=== PATIENT | male | born 1960 | race African-American/Black ===

== ENCOUNTER 2021-04-10 08:34 | Emergency (ER) | payer OTHER, SELFPAY ==
--- NOTE | ~2021-04-10 | XR_ITS ---
EXAMINATION: XR chest 2V DATE: 04/10/2021 09:13 INDICATION: Cough and congestion. Coarse upper lung snow. TECHNIQUE: Frontal and lateral views of the chest were obtained. COMPARISON: None. FINDINGS: The chest demonstrates clear lungs without pneumonia, pleural effusion, or pneumothorax. Th e heart size is normal. There is mild chronic anterior wedging of multiple midthoracic vertebral bodi es. IMPRESSION: 1. No acute cardiopulmonary disease. Reviewed, dictated and finalized at location A. [facility] [employer]
[2021-04-10 08:43] VITALS: BP 125/83; PULSE 70; RESP 16; TEMP 37.1; O2SAT 100
--- NOTE | 2021-04-10 08:47 | ED.URI ---
HPI - URI/Sore Throat General Chief Complaint: Upper Respiratory Infection Stated Complaint: Chest Congestion Time Seen by Provider: 04/10/21 08:47 Source: patient and RN notes reviewed History of Present Illness HPI Narrative: Patient is a 60-year-old male who presents the urgent care with complaints of chest congestion, intermittent shortness of breath and productive cough. Patient states that it started on Thursday he has been using Mucinex for his symptoms. Denies of any known Covid exposure and patient has had the Covid vaccine. Denies any fever, chills, nausea or vomiting. States that no one else in the home has been ill. No other acute complaints. No acute distress noted. Patient aware of the plan of care. Some parts of this dictation were generated by voice recognition software and may contain typographical and/or grammatical inaccuracies. Related Data Allergies Allergy/AdvReac Type Severity Reaction Status Date / Time No Known Allergies Allergy Verified 04/10/21 08:54 Review of Systems Review of Systems: CONSTITUTIONAL: Denies fever, chills, or sweats. EYES: Denies visual changes, redness, or discharge. ENT: Denies rhinorrhea, reports of postnasal drainage and sinus congestion CARDIOVASCULAR: Denies chest pain, palpitations, or edema. RESPIRATORY: Reports productive cough with intermittent dyspnea GASTROINTESTINAL: Denies abdominal pain, nausea, vomiting, or diarrhea. GENITOURINARY: Denies dysuria or hematuria. SKIN: Denies rash or itching. MUSCULOSKELETAL: Denies back pain, joint pain, or myalgia. NEUROLOGIC: Denies headache, numbness, or weakness. All other systems reviewed are negative, except as documented in HPI. PMFSH Comments At the time of my signature, I reviewed and agree with the nursing past medical, surgical, social, and family history. There is no relevant family history pertinent to the patient complaint. Exam Narrative: GENERAL: This is a well-nourished, well-developed patient, in no apparent distress. HEAD: normocephalic, atraumatic. EYES: PERRL. Sclera clear/white. Vision is grossly intact. EARS: External ears normal, auditory canals clear and without drainage, TMs normal without perforation. Hearing grossly intact. NOSE: External nose normal with no obvious nasal discharge, nares without redness, clear rhinorrhea. THROAT: Mucous membranes moist, posterior pharynx clear. Moderate postnasal drainage NECK: Neck supple, non-tender without lymphadenopathy, masses or thyromegaly. CARDIOVASCULAR: Regular rate and rhythm without murmurs, gallops, or rubs. RESPIRATORY: Slight coarse crackles to bilateral upper lobes. SKIN: warm, intact with no suspicious lesions or rash, good texture and turgor. NEURO: awake, alert, and oriented to person, place and time. There were no obvious focal neurologic abnormalities. EXTREMITIES: No clubbing, cyanosis, or edema. Course Course Level of Care: Express Care Visit Vital Signs Vital signs: Vital Signs Temperature 98.8 F 04/10/21 08:43 Pulse Rate 70 04/10/21 08:43 Respiratory Rate 16 04/10/21 08:43 Blood Pressure 125/83 04/10/21 08:43 Pulse Oximetry 100 04/10/21 08:43 Temperature 98.8 F 04/10/21 08:43 Pulse Rate 70 04/10/21 08:43 Respiratory Rate 16 04/10/21 08:43 Blood Pressure 125/83 04/10/21 08:43 Pulse Oximetry 100 04/10/21 08:43 Reviewed MDM - URI/Sore Throat MDM Narrative Medical decision making narrative: Reviewed x-ray results with the patient. He is aware the x-ray is negative for pneumonia or abnormality. Advised the patient to complete the steroid regimen as prescribed and continue Mucinex as needed. May use a daily antihistamine avoiding Sudafed such as Claritin or Zyrtec. Use Flonase nasal spray for postnasal drainage. Rest and increase your water intake. We will call you on your PCR Covid results within 2 to 3 days. Until then remain quarantine. Follow-up with your PCP within 5 days or for worsening symptom
[2021-04-11 18:23] LABS: SARS-CoV-2 RNA PCR Positive
== END 2021-04-10 09:39 | disposition home or self-care (01) ==
PROVIDERS: Emergency Provider Nurse Practitioner Family
DX: U07.1 COVID-19 (principal)
CPT/HCPCS: 71046; 99213; C9803; G0463; U0003; U0005